=== PATIENT | female | born 1990 | race Asian ===

== ENCOUNTER 2018-08-30 21:07 | Emergency (ER) | payer OTHER ==
[2018-08-30 22:17] VITALS: BMI 22.4
--- NOTE | 2018-08-30 22:23 | PDOC ---
History of Present Illness - General Chief Complaint: Syncope/Near Syncope Stated Complaint: DIZZY - History of Present Illness Initial Comments: 08/30/18 22:59 The patient is a 28 year old female with no significant PMH who presents for evaluation following a syncopal episode. 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 She notes that she felt extremely warm and lightheaded and then "fainted" for several minutes before gradually returning to baseline. She notes that she has been having multiple "fainting spells" over the past few months, but has not received a formal workup thus far. She notes a mild headache as well, but otherwise denies fevers , chills, SOB, chest pain, nausea, vomiting, abdominal pain, numbness, tingling , weakness, recent travel, OCP use, or changes with urination or bowel movements. Past History - Past Medical History Allergies/Adverse Reactions: Allergies Allergy/AdvReac Type Severity Reaction Status Date / Time No Known Allergies Allergy Verified 08/30/18 22:14 COPD: No - Immunization History Immunization Up to Date: Yes - Suicide/Smoking/Psychosocial Hx Smoking History: Never smoked Have you smoked in the past 12 months: No Information on smoking cessation initiated: No Hx Alcohol Use: No Drug/Substance Use Hx: No Substance Use Type: None Review of Systems - Review of Systems Comments:: 08/30/18 23:05 Constitutional: No fevers, chills, fatigue, malaise HEENT: No Rhinorrhea, nasal congestion, visual changes Cardiovascular: Syncope, Palpitations. No chest pain, lightheadedness Respiratory: No Cough, SOB, Hemoptysis, Gastrointestinal: No Abdominal pain, Nausea, Vomiting, Constipation, Diarrhea, Melena Genitourinary: No Dysuria, Frequency, Urgency, Hesitancy, Hematuria, Flank pain Musculoskeletal: No Myalgia, arthralgia Skin: No rashes, itching, bruising, pallor Neurologic: Headache. No Dizziness, Numbness, Weakness, or Tingling Psychiatric: No Hallucinations. No SI or HI *Physical Exam - Vital Signs Last Vital Signs Temp Pulse Resp BP Pulse Ox 98 F 97 H 18 105/72 100 08/30/18 21:07 08/30/18 21:07 08/30/18 21:07 08/30/18 21:07 08/30/18 21:07 - Physical Exam Comments: 08/30/18 23:05 General Appearance: Nourished. No Apparent Distress HEENT: EOMI, PEPPER. No Pharyngeal Erythema, Tonsillar Exudate, Tonsillar Erythema Neck: No Cervical Lymphadenopathy Respiratory/Chest: Lungs Clear, Normal Breath Sounds. No Crackles, Rales, Rhonchi, Wheezing Cardiovascular: Regular Rhythm, Regular Rate. No Murmur, Gallops, Rubs Gastrointestinal/Abdominal: Normal Bowel Sounds, Soft. 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 Moderate Sedation - Procedure Monitoring Vital Signs: Procedure Monitoring Vital Signs Temperature 98 F 08/30/18 21:07 Pulse Rate 97 H 08/30/18 21:07 Respiratory Rate 18 08/30/18 21:07 Blood Pressure 105/72 08/30/18 21:07 O2 Sat by Pulse Oximetry (%) 100 08/30/18 21:07 Heart Score/ECG Review #1 ECG reviewed & interpreted by me at: 23:09 General ECG Interpretation: Sinus Rhythm, Normal Rate, Normal Intervals, No acute ischemic changes Compared to previous ECG there are: No significant change (04/28/18) 08/30/18 23:25 Incomplete RBBB ED Treatment Course - LABORATORY CBC & Chemistry Diagram: 08/30/18 22:55 08/30/18 22:55 Medical Decision Making - Medical Decision Making 08/30/18 23:05 The patient is a 28 year old female with no significant PMH who presents for evaluation following a syncopal episode. Differential includes but is not limited to: ACS, Arrhythmia, Intracranial process, Infectious, Metabolic Derangement, Vaso-vagal. Given the patient's history and physical exam, we will obtain a cbc, cmp, troponin, serum preg, chest plain film, ekg, head ct to evaluate further. We will treat with iv fluids and continue to monitor and reassess while here in the ED. 08/31/18 00:03 CBC, cmp, troponin, serum preg are unremarkable. Chest plain film is unremarkable as preliminarily read by ED physician. Head CT is unremarkable as preliminarily read by our rn clinical documentation radiologist. The patient reports improvement in her symptoms. We are comfortable discharging the patient home with cardiology follow up. We discussed the results, plan, and return precautions with the patient who voiced understanding and is agreeable with the plan. *DC/Admit/Observation/Transfer Diagnosis at time of Disposition: Syncope Qualifiers: Syncope type: unspecified Qualified Code(s): R55 - Syncope and collapse - Discharge Dispostion Disposition: HOME Condition at time of disposition: Stable Decision to Admit order: No - Referrals Referrals: Diogo Pan [Primary Care Provider] - William Mckeon MD [Staff Physician] - - Patient Instructions Printed Discharge Instructions: DI for Syncope in Adults (Fainting) Additional Instructions: Please return to the ER if you experience concerning or worsening symptoms including worsening difficulty breathing, weakness, or chest pain. Your lab results and CT scan were normal here in the ER. Please call to schedule a follow up appointment with your primary care provider and our internal grinder, Dr. Mckeon, within 2-3 days to discuss your ER visit and further management of your symptoms. - Post Discharge Activity
[2018-08-30] MEDS ORDERED: SODIUM CHLORIDE 1,000 ML IV STA (22:31)
--- NOTE | 2018-08-30 22:33 | PDOC ---
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 She states she became hot and lightheaded followed by a couple of minutes of being blacked out. She states this has happened a couple of times over the past few months but denies being medically evaluated. She also reports an intermittent pressure-like headache for the past few months. She reports a mild headache now. She reports having palpitations following the syncopal episodes. She states the syncope was witnessed by coworkers. The patient denies any head trauma from her syncopal episodes. She denies any other symptoms. The patient denies chest pain, shortness of breath, and dizziness. The patient denies fever, chills, nausea, vomit, diarrhea and constipation. The patient denies dysuria, frequency, urgency and hematuria. The patient denies a history of seizures. Allergies: NKDA Past surgical history: none reported Social history: Denies toxic habits - Medical Decision Making 08/30/18 22:39 Documentation prepared by Emily Snaford, acting as medical examiner for Fitz Laura MD ------- EXAM: HEAD CT WITHOUT CONTRAST HISTORY: Not provided COMPARISON: None. FINDINGS: Brain parenchyma is normal in attenuation with no mass or hematoma. There is no midline shift. Louie and white matter differentiation is normal. Ventricles are normal.Sulci and extra-axial CSF spaces are normal.Intracranial vascular structures are normal in attenuation.There is no calvarial fracture.Paranasal sinuses are normally aerated. IMPRESSION: Normal head THIS DOCUMENT HAS BEEN ELECTRONICALLY SIGNED Oneil Oseguera MD 08/30/2018 23:42 EST <Emily Sanford - Last Filed: 08/31/18 00:02> - Resident Resident Name: Mauricio Vance - ED Attending Attestation I have performed the following: I have examined & evaluated the patient, The case was reviewed & discussed with the resident, I agree w/resident's findings & plan, Exceptions are as noted - Physicial Exam PE: 08/31/18 00:03 Agree with exam as documented by the resident - Medical Decision Making 08/31/18 00:04 Syncopal event while at work, reports prodrome, denies fam hx of sudden , ekg with incomplete RBBB but no brugada features, likely normal variant in otherwise healthy young female w/o risk factors. f/u labs, ct b Unremarkable workup dc with cardiology follow up <Fitz Laura - Last Filed: 08/31/18 00:06>
[2018-08-30 23:17] LABS: BASO % 0.4 % (0-2.0); EOS % 0.4 % (0-4.5); HEMATOCRIT 38.7 % (32.4-45.2); HEMOGLOBIN 13.3 GM/dL (10.7-15.3); LYMPH % 25.6 % (8-40); MCH 29.2 pg (25.7-33.7); MCHC 34.3 g/dl (32.0-36.0); MEAN CELL VOLUME 85.1 fl (80-96); MEAN PLT VOLUME 7.7 fl (7.5-11.1); MONO % 6.3 % (3.8-10.2); NEUT % 67.3 % (42.8-82.8); PLATELET COUNT 408 K/MM3 (134-434); RBC 4.55 M/mm3 (3.60-5.2); RDW 13.5 % (11.6-15.6); WHITE BLOOD COUNT 10.4 K/mm3 (4.0-10.0)
[2018-08-30 23:53] LABS: ALBUMIN 3.9 g/dl (3.4-5.0); ALK PHOS 64 U/L (45-117); ANION GAP 6 MMOL/L (8-16); BILIRUBIN,TOTAL 0.2 mg/dL (0.2-1); BLOOD UREA NITROGEN 8 mg/dL (7-18); CHLORIDE 104 mmol/L (98-107); CO2 29 mmol/L (21-32); CREATININE 0.5 mg/dL (0.55-1.3); GLUCOSE,RANDOM 72 mg/dL (74-106); POTASSIUM 4.4 mmol/L (3.5-5.1); SGOT/AST 16 U/L (15-37); SGPT/ALT 22 U/L (13-61); SODIUM 138 mmol/L (136-145); TOT PROT 7.2 g/dl (6.4-8.2)
[2018-08-31] MEDS ORDERED: ACETAMINOPHEN 500 MG TABLET (FP) PO ONE (00:07)
[2018-08-31] MEDS ORDERED: ACETAMINOPHEN 325 MG TABLET (FP) ONE (00:08)
[2018-08-31 00:20] VITALS: BP 108/53; PULSE 79; TEMP 98.1
--- NOTE | 2018-08-31 12:03 | EKG ---
Test Reason : Blood Pressure : / mmHG Vent. Rate : 084 BPM Atrial Rate : 084 BPM P-R Int : 130 ms QRS Dur : 096 ms QT Int : 374 ms P-R-T Axes : 061 078 043 degrees QTc Int : 441 ms NORMAL SINUS RHYTHM INCOMPLETE RIGHT BUNDLE BRANCH BLOCK BORDERLINE ECG WHEN COMPARED WITH ECG OF 28-APR-2018 16:15, NO SIGNIFICANT CHANGE WAS FOUND Confirmed by RADU BEST MD ([id number]) on 08/31/2018 12:02:43 PM Referred By: Confirmed By:RADU BEST MD
== END 2018-08-31 02:02 | disposition home or self-care (01) ==
LOC: JER 21:07
PROC: 3E0337Z Introduction of Electrolytic and Water Balance Substance into Peripheral Vein, Percutaneous Approach (ICD-10-PCS; principal; 2018-08-30)
DX: R55 Syncope and collapse (principal)
CPT/HCPCS: 36415; 70450-TC; 71045-TC-FY; 80053; 82550; 84484; 84703; 85025; 93005; 93010; 99285-25; J7030